=== PATIENT | female | born 1995 | race Caucasian/White ===

== ENCOUNTER 2024-12-19 15:38 | Emergency (ER) | payer MEDICAID ==
[~2024-12-19] VITALS: Ht 172.7 cm; Wt 77.0 kg
[2024-12-19 15:47] VITALS: TEMP 36.9; O2SAT 98
[2024-12-19] MEDS ORDERED: HALOPERIDOL LACTATE 5MG/ML VIAL IM STA (16:25)
[2024-12-19] MEDS ORDERED: LORAZEPAM 2MG/ML INJ IM STA (16:25)
[2024-12-19] MEDS ORDERED: DIPHENHYDRAMINE 50MG/ML VIAL IM STA (16:25)
[2024-12-19 19:43] LABS: BASOPHILS % 0.8 % (0.0-2.0); EOSINOPHILS % 2.4 % (0.0-5.0); HEMATOCRIT. 43.7 % (36.0-48.0); HEMOGLOBIN. 14.1 g/dL (12.0-16.0); LYMPHOCYTES % 30.7 % (20.0-50.0); MEAN CORPUSCULAR HEMOGLOBIN 28.9 pg (28.0-32.0); MEAN CORPUSCULAR HGB CONC 32.3 g/dL (31.0-37.0); MEAN CORPUSCULAR VOLUME 89.6 fL (81.0-99.0); MEAN PLATELET VOLUME 7.6 fl (7.4-10.4); MONOCYTES % 3.9 % (2.0-8.0); NEUTROPHILS % 62.2 % (40.0-76.0); PLATELET 390 x1000/uL (130-400); RED BLOOD CELL COUNT 4.88 mill/uL (4.2-5.4); RED CELL DISTRIBUTION WIDTH 14.5 % (11.6-14.6); WHITE BLOOD COUNT 8.5 x1000/uL (4.5-11.0)
[2024-12-19 19:48] LABS: CHLORIDE 110 mEq/L (98-107); SODIUM 145 mEq/L (136-145)
[2024-12-19 19:49] LABS: CALCIUM 8.9 mg/dL (8.7-10.4); CARBON DIOXIDE 24 mEq/L (21-32)
[2024-12-19 19:54] LABS: CREATININE 0.6 mg/dL (0.6-1.0); ETHANOL BLOOD 298 mg/dL (<10); GLUCOSE 87 mg/dL (70-105); UREA NITROGEN BLOOD 8 mg/dL (9-23)
[2024-12-20] MEDS: LORAZEPAM 2MG/ML INJ IM NR (00:38)
[2024-12-20] MEDS: DIPHENHYDRAMINE 50MG/ML VIAL IM NR (00:38)
[2024-12-20] MEDS: HALOPERIDOL LACTATE 5MG/ML VIAL IM NR (00:39)
[2024-12-20 04:35] VITALS: BP 122/82; PULSE 85; RESP 18; O2SAT 99
== END 2024-12-20 04:36 | disposition home or self-care (01) ==
LOC: ER 15:38
DX: F10.129 Alcohol abuse with intoxication, unspecified (principal); Y90.8 Blood alcohol level of 240 mg/100 ml or more
CPT/HCPCS: 80048; 80320; 85025; 36415; 99283; J2060; G0480